=== PATIENT | male | born 1980 | race American Indian/Alaskan Native ===

== ENCOUNTER 2020-02-11 14:06 | Emergency (ER) | payer OTHER ==
[2020-02-11 14:13] VITALS: BP 146/83
[2020-02-11] MEDS ORDERED: DIPHtheria,PERTUSSIS(ACELL),TETANUS VACCINE/PF 0.5 ML VIAL IM ONE (15:22)
[2020-02-11] MEDS ORDERED: HYDROcodone/ACETAMINOPHEN 5-325 MG TAB PO ONE (15:22)
[2020-02-11] MEDS ORDERED: NEOMY 3.5 MG/BACIT 400 UNITS/POLY B 5000 UNITS/GM OINT PACKET TP ONE ×2 (15:30→18:21)
[2020-02-11 15:42] LABS: Basophils # (Auto) 0.1 K/mm3 (0.0-0.1); Basophils % (Auto) 0.8 % (0.0-1.8); Eosinophils # (Auto) 0.1 K/mm3 (0.0-0.4); Eosinophils % (Auto) 2.1 % (0.0-4.3); Hematocrit 44.6 % (35.5-45.6); Lymphocytes # (Auto) 2.1 K/mm3 (1.2-5.4); Lymphocytes % (Auto) 31.1 % (13.4-35.0); Mean Corpuscular HGB Conc 34 % (32-34); Mean Corpuscular Volume 97 fl (84-94); Monocytes # (Auto) 0.6 K/mm3 (0.0-0.8); Monocytes % (Auto) 8.3 % (0.0-7.3); Platelet Count 237 K/mm3 (140-440); Red Blood Count 4.62 M/mm3 (3.65-5.03); Red Cell Distribution Width 12.7 % (13.2-15.2)
[2020-02-11 15:53] LABS: INR 0.96 (0.87-1.13)
[2020-02-11 15:54] LABS: Partial Thromboplastin Time 29.3 Sec. (24.2-36.6)
[2020-02-11 15:59] LABS: Alanine Aminotransferase 23 units/L (7-56); Albumin 4.7 g/dL (3.9-5); BUN/Creatinine Ratio 18; Blood Urea Nitrogen 18 mg/dL (9-20); Calcium 10.2 mg/dL (8.4-10.2); Hemolysis Index 5
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
[2020-02-11] MEDS ORDERED: oxyCODONE /ACETAMINOPHEN 5-325MG TAB ONE (18:27)
== END 2020-02-11 19:01 | disposition home or self-care (01) ==
LOC: ED 14:06
DX: S20.319A Abrasion of unspecified front wall of thorax, initial encounter (principal); M54.5 Low back pain; M54.2 Cervicalgia; Z79.899 Other long term (current) drug therapy; V49.49XA Driver injured in collision with other motor vehicles in traffic accident, initial encounter; W22.10XA Striking against or struck by unspecified automobile airbag, initial encounter; Y93.89 Activity, other specified; Y92.410 Unspecified street and highway as the place of occurrence of the external cause; Y99.8 Other external cause status
CPT/HCPCS: 36415; 70450; 71260; 72125; 72131; 80053; 85025; 85610; 85730; 90471; 90715; 99284; Q9967; A6250